=== PATIENT | male | born 1960 | race Caucasian/White ===

== ENCOUNTER 2016-11-20 06:05 | Day surgery (SDC) | payer OTHER ==
[2016-11-19 10:56] VITALS: Ht 170.2 cm; Wt 88.7 kg
--- NOTE | 2016-11-19 12:39 | PREOPHP ---
DATE OF ADMISSION: 11/20/2016 HISTORY OF PRESENT ILLNESS: This 56-year-old patient is admitted for elective cataract surgery of t he left eye. The patient has had progressive deterioration of vision, and 3 years ago underwent cat aract surgery on the right eye with good visual results. The patient has no history of systemic ill nesses. MEDICATIONS: Currently is not on any medication. ALLERGIES: PATIENT HAS NO KNOWN ALLERGIES. PHYSICAL EXAMINATION: Visual acuity best corrected is 20/20 in the right eye and 20/50 in the left eye. Reading vision is decreased to 20/80 in the left eye. Slit lamp examination reveals a posteri or chamber intraocular lens in appropriate position in the right eye, and a posterior subcapsular ca taract in the left eye. Applanation tonometry is 15 mmHg in both eyes. Examination of the retina i s entirely within normal limits. DIAGNOSIS: Cataract, left eye. PLAN: Cataract extraction with lens implant, left eye. The risks and alternatives to the surgery h ave been discussed with the patient as well as the hope for improvement of visual acuity following s urgery, leading to a greater ability to perform activities of daily living. The patient understands this and agrees to proceed with surgery. Dictated By: LUKASZ BARTHOLOMEW/LISA Conf#: [id number] DID#: [id number]
[~2016-11-20] VITALS: Ht 170.2 cm; Wt 88.7 kg
[~2016-11-20 06:05] MED LIST: CIPROFLOXACIN 0.3% 2.5 ML OPH OPER SCH; CYCLOPENTOLATE/PHENYLEPH 2 ML OPH OPER SCH; DICLOFENAC 0.1% 2.5 ML OPH OPER SCH; TROPICAMIDE 1% 2 ML OPH OPER SCH
[2016-11-20] MEDS ORDERED: CEFAZOLIN 1 GM INJ ONE (06:08)
[2016-11-20] MEDS ORDERED: EPINEPHrine 1 MG INJ ONE (06:08)
[2016-11-20] MEDS ORDERED: DEXAMETHASONE 4 MG/ML 1 ML INJ ONE (06:09)
[2016-11-20] MEDS ORDERED: LIDOCAINE 1% (MPF) 10 ML INJ ONE (06:09)
[2016-11-20] MEDS ORDERED: LIDOCAINE 4% (MPF) 5 ML INJ ONE (06:10)
[2016-11-20] MEDS ORDERED: HYALURONATE/CHONDROITIN 1ML OPH INJ ONE (06:11)
[2016-11-20] MEDS ORDERED: CARBACHOL 0.01% 1.5 ML OPH INJ ONE (06:41)
[2016-11-20 06:50] VITALS: BP 121/74; PULSE 62; RESP 18
[2016-11-20] MEDS ORDERED: HYALURONATE/CHONDROITIN 1ML OPH INJ IO ONE (07:00)
[2016-11-20] MEDS ORDERED: CARBACHOL 0.01% 1.5 ML OPH INJ IO ONE (07:00)
[2016-11-20] MEDS ORDERED: DEXAMETHASONE 4 MG/ML 1 ML INJ INJ ONE (07:00)
[2016-11-20] MEDS ORDERED: LACTATED RINGER'S 1,000 ML IV SCH (07:00)
[2016-11-20] MEDS ORDERED: CEFAZOLIN 1 GM INJ INJ ONE (07:00)
[2016-11-20] MEDS ORDERED: PROPOFOL 20 ML ONE (07:22)
[2016-11-20] MEDS ORDERED: MIDAZOLAM 1 MG/ML 2 ML INJ ONE (07:22)
[2016-11-20] MEDS ORDERED: LIDOCAINE 2% (SDV) 5 ML INJ ONE (07:22)
[2016-11-20] MEDS ORDERED: ONDANSETRON 4 MG INJ ONE (07:35)
[2016-11-20 07:58] VITALS: BP 124/74; PULSE 60; RESP 14
[2016-11-20] MEDS ORDERED: ONDANSETRON 4 MG INJ IV PRN (08:00)
[2016-11-20] MEDS ORDERED: DIPHENHYDRAMINE 50 MG INJ IV PRN (08:00)
[2016-11-20] MEDS ORDERED: METOCLOPRAMIDE 10 MG INJ IV PRN (08:00)
[2016-11-20] MEDS ORDERED: MEPERIDINE 25 MG INJ IV PRN (08:00)
[2016-11-20] MEDS ORDERED: OXYCODONE/ACETAMINOPHEN (5/325) TAB PO PRN ×2 (08:00)
[2016-11-20] MEDS ORDERED: FENTAnyl 50 MCG/ML VIAL IV PRN (08:00)
[2016-11-20] MEDS ORDERED: PROCHLORPERAZINE 10 MG INJ IV PRN (08:00)
[2016-11-20 08:03] VITALS: BP 118/69; RESP 14
[2016-11-20 08:08] VITALS: BP 116/66; RESP 14
[2016-11-20 08:13] VITALS: BP 109/71; PULSE 59; RESP 14
[2016-11-20 08:45] VITALS: BP 128/64; PULSE 75
--- NOTE | 2016-11-20 10:51 | OPR ---
DATE OF OPERATION: 11/20/2016 PREOPERATIVE DIAGNOSIS: Cataract, left eye. POSTOPERATIVE DIAGNOSIS: Cataract, left eye. OPERATION PERFORMED: Cataract extraction with lens implant, left eye. SURGEON: Lukasz Elise MD ANESTHESIOLOGIST: Rosalva Morejon MD ANESTHESIA: Local standby. PROCEDURE: The patient was brought to the operating room and placed on the table with an IV in plac e and the patient attached to an upholsterer inside. Oxygen was given via face mask. After some intravenous sedation was administered, local anesthesia was given using Xylocaine 2% with epinephrine, mixed with Marcaine 0.5%. This was given in a lid block and retrobulbar injection. The patient was then prepped and draped in the usual sterile manner. A wire lid speculum was inserted between the lids of the left eye. A Superblade was used to enter th e anterior chamber at the corneoscleral limbus at the 10:30 o'clock position. A separate incision wa s made using a 3.0-mm keratome which entered the corneoscleral junction at the 12 o'clock position. Through this 3-mm opening, an irrigating cystitome was introduced into the anterior chamber. The elaine mber was filled with Viscoat and an anterior capsulotomy was performed. Balanced salt solution was t hen used for hydrodissection of the lens. A phacoemulsification handpiece was then brought into the field and introduced into the anterior chamber. The lens nucleus was emulsified using a deep groove and cracking the nucleus into quadrants. Following this, each quadrant was aspirated and emulsified at the pupillary margin. After this was completed, the irrigation/aspiration handpiece was brought to the field, introduced i nto the posterior chamber, and the lens cortical material was removed. When this was completed, max tional Viscoat was injected into the anterior and posterior chambers. The 3-mm opening had its internal lips enlarged, and then the posterior chamber intraocular lens veronica suring 19.0 diopters (Bausch and Lomb model LI61AO) was then injected into the posterior chamber usi ng the lens injector system. After the leading haptic was introduced into the capsular bag and the l ens optic was present in the center of the eye, the injector was removed and the trailing haptic was grasped with non-toothed forceps and introduced into the capsular fold superiorly. A Sinskey hook w as then used to rotate the intraocular lens so that the lips were oriented in the horizontal meridia n. One 10-0 nylon suture was placed across the wound. Prior to tying, the irrigation/aspiration handpiece was reintroduced into the anterior chamber to re move the Viscoat. Miochol was instilled to constrict the pupil, and then the 10-0 nylon suture was t ied. The ends were cut short and then the knot was buried. Then, 0.5 mL of dexamethasone and 0.5 mL of Ancef were injected into the sub-Tenon space in the infe rior fornix. Ciloxan drops were then placed on the surface of the eye. The speculum was removed and a patch was applied. The patient then left the operating room in satisfactory condition. Dictated By: LUKASZ BARTHOLOMEW/LISA Conf#: [id number] DID#: [id number]
== END 2016-11-20 09:45 | disposition home or self-care (01) ==
LOC: SDS 06:05
PROVIDERS: ATTEND Ophthalmology
DX: H26.9 Unspecified cataract (principal); E78.5 Hyperlipidemia, unspecified
CPT/HCPCS: 66984; J0171; J0690; J1100; J2250; J2405; V2632; Z7512; Z7610

== ENCOUNTER 2018-02-02 13:59 | Emergency (ER) | END 2018-02-02 17:33 | disposition home or self-care (01) ==

== ENCOUNTER → 2018-08-13 | Emergency (ER) | END | disposition home or self-care (01) ==

== ENCOUNTER 2019-06-12 17:21 | Emergency (ER) | payer OTHER ==
[~2019-06-12] VITALS: Ht 160 cm; Wt 89.0 kg
[~2019-06-12 17:21] MED LIST changes: +ACET500C5 PO; -CIPROFLOXACIN 0.3% 2.5 ML OPH OPER SCH; -CYCLOPENTOLATE/PHENYLEPH 2 ML OPH OPER SCH; -DICLOFENAC 0.1% 2.5 ML OPH OPER SCH; +FLUT9.9S NASAL; +LEVO750T8 PO; +PSEU120T12 PO; -TROPICAMIDE 1% 2 ML OPH OPER SCH
[2019-06-12 17:26] VITALS: BP 151/85; PULSE 86; RESP 18; Ht 160 cm; Wt 89.0 kg
[2019-06-12] MEDS ORDERED: HYDROCODONE/APAP (5/325) TAB PO ONE (18:30)
== END 2019-06-12 19:54 | disposition home or self-care (01) ==
LOC: FTE 17:21
DX: S20.212A Contusion of left front wall of thorax, initial encounter (principal); Y04.2XXA Assault by strike against or bumped into by another person, initial encounter
CPT/HCPCS: 70450; 70486; 71045; 71100; 72072; 72100; Z7502; Z7610